=== PATIENT | female | born 1985 | race Caucasian/White ===

== ENCOUNTER 2016-05-02 20:43 | Emergency (ER) | payer BC ==
[2016-05-02] MEDS ORDERED: Ondansetron 4 MG/2 ML SDV IVPUSH ONE (21:10)
[2016-05-02] MEDS ORDERED: LORazepam 2 MG/ML MDV IVPUSH STA (21:10)
--- NOTE | 2016-05-02 21:31 | EDM.PDOC ---
ED HPI GENERAL MEDICAL PROBLEM - General Chief Complaint: Neurological Problem Stated Complaint: VOMITING NUMBNESS TO BOTH LEGS Time Seen by Provider: 05/02/16 20:54 Source of Information: Reports: Patient, RN notes reviewed History Limitations: Reports: No limitations - History of Present Illness INITIAL COMMENTS - FREE TEXT/NARRATIVE: The patient states that she developed sudden onset of blurry vision, lightheadedness, a headache involving all of her head, nausea and vomiting, the sensation of a tight throat, tingling in her lower extremities, and the feeling of walking on her legs, around 19:00 to 19:30 tonight. She denies having any chest pain, dyspnea, or abdominal pain. Her blurry vision is now slight, and her lower extremity symptoms have improved, but her nausea, headache, and throat tightness continue. She describes her headache as sharp and stabbing in character. She states that she has a history of migraines, and this is not the same as her typical migraine. It is noted that the patient is saturating 99-100% on room air. Headache Pain Score (Numeric/FACES): 8 - Related Data Allergies Allergy/AdvReac Type Severity Reaction Status Date / Time cefazolin sodium [From [facility]] Allergy Cannot Verified 05/02/16 20:51 Remember Penicillins Allergy Anaphylactic Verified 05/02/16 20:[address] Contrast Allergy Rash Uncoded 08/02/14 19:48 Home Meds: Home Meds . [No Known Home Meds] 05/02/16 [History] Past Medical History Neurological History: Reports: Migraines Other Oncologic History: melanoma - Past Surgical History HEENT Surgical History: Reports: Adenoidectomy, Oral surgery ([place] teeth extraction), Tonsillectomy GI Surgical History: Reports: Cholecystectomy, Colonoscopy (x 2) Female Surgical History: Reports: Hysterectomy Musculoskeletal Surgical History: Reports: Other (see below) (Right hand surgery ) Social & Family History - Tobacco Use Smoking Status *Q: Never Smoker Second Hand Smoke Exposure: No - Caffeine Use Caffeine Use: Reports: None - Alcohol Use Alcohol Use History: No - Recreational Drug Use Recreational Drug Use: No - Living Situation & Occupation Living situation: Reports: , with spouse, with family (1 child) 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) ED ROS GENERAL - Review of Systems Review Of Systems: See Below Constitutional: Reports: no symptoms HEENT: Reports: No symptoms Respiratory: Reports: No Symptoms Cardiovascular: Reports: No symptoms Endocrine: Reports: no symptoms GI/Abdominal: Reports: No symptoms : Reports: no symptoms Musculoskeletal: Reports: no symptoms Skin: Reports: no symptoms Neurological: Reports: No Symptoms Psychiatric: Reports: No symptoms Hematologic/Lymphatic: Reports: no symptoms Immunologic: Reports: no symptoms ED EXAM, GENERAL - Physical Exam Exam: See Below Exam Limited By: No limitations General Appearance: alert, WD/WN, no apparent distress, anxious Eye Exam: bilateral eye: EOMI, normal inspection Ears: normal external exam, hearing grossly normal Ear Exam: bilateral ear: auricle normal Nose: normal inspection, no blood Throat/Mouth: Normal inspection, Normal lips, Normal voice, No airway compromise Head: atraumatic, normocephalic Neck: normal inspection, full range of motion. No: lymphadenopathy (L), lymphadenopathy (R) Respiratory/Chest: no respiratory distress, lungs clear, normal breath sounds, no accessory muscle use, chest non-tender Cardiovascular: normal peripheral pulses, regular rate, rhythm, no edema, no gallop, no JVD, no murmur, no rub Peripheral Pulses: 4+: radial (L), radial (R) GI/Abdominal: normal bowel sounds, soft, non tender, no organomegaly, no distention, no abnormal bruit, no mass Back Exam: normal inspection, full range of motion, NT Extremities: normal inspection, normal range of motion, non-tender, normal capillary refill, no pedal edema Neurological: alert, oriented, CN II-XII intact, normal cognition, no motor/ sensory deficits Psychiatric: normal affect, anxious Skin Exam: Warm, Dry, Intact, Normal color, No rash Lymphatic: no adenopathy EKG INTERPRETATION EKG Date: 05/02/16 Time: 21:22 Rhythm: NSR Rate (beats/min): 79 [place]: normal P-wave: present QRS: normal ST-T: normal QT: normal Comparison: NA - no prior EKG Course - Vital Signs Last Recorded V/S: Last Vital Signs Temp 36.6 C 05/02/16 20:48 Pulse 80 05/03/16 03:05 Resp 16 05/03/16 03:05 BP Pulse Ox 100 05/03/16 03:05 Orthostatic Blood Pressure [ 145/112 Standing] Orthostatic Blood Pressure [ 140/99 Supine] - Orders/Labs/Meds Labs: Laboratory Tests 05/02/16 05/02/16 05/02/16 Range/Units 21:18 21:18 21:18 WBC 10.02 (3.98-10.04) K/mm3 RBC 5.01 (3.98-5.22) M/mm3 Hgb 14.5 (11.2-15.7) gm/L Hct 42.0 (34.1-44.9) % MCV 83.8 (79.4-94.8) fl MCH 28.9 (25.6-32.2) pg MCHC 34.5 (32.2-35.5) g/dl RDW Std Deviation 39.7 (36.4-46.3) fL Plt Count 354 (182-369) K/mm3 MPV 9.8 (9.4-12.3) fl Neutrophils % (Manual) 77 H (40-60) % Band Neutrophils % 1 (0-10) % Lymphocytes % (Manual) 20 (20-40) % Atypical Lymphs % 0 % Monocytes % (Manual) 2 (2-10) % Eosinophils % (Manual) 0 L (0.7-5.8) % Basophils % (Manual) 0 L (0.1-1.2) Platelet Estimate Adequate RBC Morph Comment Normal PT 10.7 (8.0-13.0) SECONDS INR 0.98 APTT 28 (22-36) SECONDS D-Dimer, Quantitative < 0.19 L (0.19-0.59) mg/L Puncture Site ABG pH (7.35-7.45) ABG pCO2 (35.0-45.0) mmHg ABG pO2 (80.0-100.0) mmHg ABG HCO3 (22.0-26.0) meq/L ABG O2 Saturation (96.0-97.0) % ABG Base Excess (-2-2.0) Haile Test A-a Gradient mmHg FiO2 (21.00-100.00) % Sodium 141 (136-145) mEq/L Potassium 3.5 (3.5-5.1) mEq/L Chloride 106 (98-107) mEq/L Carbon Dioxide 25 (21-32) mEq/L Anion Gap 13.5 (5-15) BUN 11 (7-18) mg/dL Creatinine 0.9 (0.55-1.02) mg/dL Est Cr Clr Drug Dosing 91.36 mL/min Estimated GFR (MDRD) > 60 (>60) mL/min BUN/Creatinine Ratio 12.2 L (14-18) Glucose 119 H (74-106) mg/dL Calcium 9.1 (8.5-10.1) mg/dL Magnesium 2.1 (1.8-2.4) mg/dl Total Bilirubin 0.5 (0.2-1.0) mg/dL AST 22 (15-37) U/L ALT 38 (14-59) U/L Alkaline Phosphatase 105 (46-116) U/L Troponin I < 0.017 (0.00-0.056) ng/mL B-Natriuretic Peptide (0-100) pg/mL Total Protein 7.0 (6.4-8.2) g/dl Albumin 4.3 (3.4-5.0) g/dl Globulin 2.7 gm/dL Albumin/Globulin Ratio 1.6 (1-2) TSH 3rd Generation 1.783 (0.358-3.74) uIU/mL Urine Color (Yellow) Urine Appearance (Clear) Urine pH (5.0-8.0) Ur Specific [place] (1.005-1.030) Urine Protein (Negative) Urine Glucose (UA) (Negative) Urine Ketones (Negative) Urine Occult Blood (Negative) Urine Nitrite (Negative) Urine Bilirubin (Negative) Urine Urobilinogen (0.2-1.0) Ur Leukocyte Esterase (Negative) Urine RBC (0-5) /hpf Urine WBC (0-5) /hpf Ur Squamous Epith Cells (0-5) /hpf Urine Bacteria (FEW) /hpf Urine Mucus (FEW) /hpf Urine HCG, Qual (NEGATIVE) 05/02/16 05/02/16 05/02/16 Range/Units 21:18 21:30 21:42 WBC (3.98-10.04) K/mm3 RBC (3.98-5.22) M/mm3 Hgb (11.2-15.7) gm/L Hct (34.1-44.9) % MCV (79.4-94.8) fl MCH (25.6-32.2) pg MCHC (32.2-35.5) g/dl RDW Std Deviation (36.4-46.3) fL Plt Count (182-369) K/mm3 MPV (9.4-12.3) fl Neutrophils % (Manual) (40-60) % Band Neutrophils % (0-10) % Lymphocytes % (Manual) (20-40) % Atypical Lymphs % % Monocytes % (Manual) (2-10) % Eosinophils % (Manual) (0.7-5.8) % Basophils % (Manual) (0.1-1.2) Platelet Estimate RBC Morph Comment PT (8.0-13.0) SECONDS INR APTT (22-36) SECONDS D-Dimer, Quantitative (0.19-0.59) mg/L Puncture Site Rt radial ABG pH 7.45 (7.35-7.45) ABG pCO2 31.2 L (35.0-45.0) mmHg ABG pO2 103.0 H (80.0-100.0) mmHg ABG HCO3 21.4 L (22.0-26.0) meq/L ABG O2 Saturation 98.8 H (96.0-97.0) % ABG Base Excess -1.2 (-2-2.0) Haile Test Positive A-a Gradient 0 mmHg FiO2 21.00 (21.00-100.00) % Sodium (136-145) mEq/L Potassium (3.5-5.1) mEq/L Chloride (98-107) mEq/L Carbon Dioxide (21-32) mEq/L Anion Gap (5-15) BUN (7-18) mg/dL Creatinine (0.55-1.02) mg/dL Est Cr Clr Drug Dosing mL/min Estimated GFR (MDRD) (>60) mL/min BUN/Creatinine Ratio (14-18) Glucose (74-106) mg/dL Calcium (8.5-10.1) mg/dL Magnesium (1.8-2.4) mg/dl Total Bilirubin (0.2-1.0) mg/dL AST (15-37) U/L ALT (14-59) U/L Alkaline Phosphatase (46-116) U/L Troponin I (0.00-0.056) ng/mL B-Natriuretic Peptide 18 (0-100) pg/mL Total Protein (6.4-8.2) g/dl Albumin (3.4-5.0) g/dl Globulin gm/dL Albumin/Globulin Ratio (1-2) TSH 3rd Generation (0.358-3.74) uIU/mL Urine Color (Yellow) Urine Appearance (Clear) Urine pH (5.0-8.0) Ur Specific [place] (1.005-1.030) Urine Protein (Negative) Urine Glucose (UA) (Negative) Urine Ketones (Negative) Urine Occult Blood (Negative) Urine Nitrite (Negative) Urine Bilirubin (Negative) Urine Urobilinogen (0.2-1.0) Ur Leukocyte Esterase (Negative) Urine RBC (0-5) /hpf Urine WBC (0-5) /hpf Ur Squamous Epith Cells (0-5) /hpf Urine Bacteria (FEW) /hpf Urine Mucus (FEW) /hpf Urine HCG, Qual Negative (NEGATIVE) 05/02/16 Range/Units 21:42 WBC (3.98-10.04) K/mm3 RBC (3.98-5.22) M/mm3 Hgb (11.2-15.7) gm/L Hct (34.1-44.9) % MCV (79.4-94.8) fl MCH (25.6-32.2) pg MCHC (32.2-35.5) g/dl RDW Std Deviation (36.4-46.3) fL Plt Count (182-369) K/mm3 MPV (9.4-12.3) fl Neutrophils % (Manual) (40-60) % Band Neutrophils % (0-10) % Lymphocytes % (Manual) (20-40) % Atypical Lymphs % % Monocytes % (Manual) (2-10) % Eosinophils % (Manual) (0.7-5.8) % Basophils % (Manual) (0.1-1.2) Platelet Estimate RBC Morph Comment PT (8.0-13.0) SECONDS INR APTT (22-36) SECONDS D-Dimer, Quantitative (0.19-0.59) mg/L Puncture Site ABG pH (7.35-7.45) ABG pCO2 (35.0-45.0) mmHg ABG pO2 (80.0-100.0) mmHg ABG HCO3 (22.0-26.0) meq/L ABG O2 Saturation (96.0-97.0) % ABG Base Excess (-2-2.0) Haile Test A-a Gradient mmHg FiO2 (21.00-100.00) % Sodium (136-145) mEq/L Potassium (3.5-5.1) mEq/L Chloride (98-107) mEq/L Carbon Dioxide (21-32) mEq/L Anion Gap (5-15) BUN (7-18) mg/dL Creatinine (0.55-1.02) mg/dL Est Cr Clr Drug Dosing mL/min Estimated GFR (MDRD) (>60) mL/min BUN/Creatinine Ratio (14-18) Glucose (74-106) mg/dL Calcium (8.5-10.1) mg/dL Magnesium (1.8-2.4) mg/dl Total Bilirubin (0.2-1.0) mg/dL AST (15-37) U/L ALT (14-59) U/L Alkaline Phosphatase (46-116) U/L Troponin I (0.00-0.056) ng/mL B-Natriuretic Peptide (0-100) pg/mL Total Protein (6.4-8.2) g/dl Albumin (3.4-5.0) g/dl Globulin gm/dL Albumin/Globulin Ratio (1-2) TSH 3rd Generation (0.358-3.74) uIU/mL Urine Color Yellow (Yellow) Urine Appearance Slt cloudy H (Clear) Urine pH 7.5 (5.0-8.0) Ur Specific [place] 1.020 (1.005-1.030) Urine Protein Negative (Negative) Urine Glucose (UA) Negative (Negative) Urine Ketones Negative (Negative) Urine Occult Blood Negative (Negative) Urine Nitrite Negative (Negative) Urine Bilirubin Negative (Negative) Urine Urobilinogen 0.2 (0.2-1.0) Ur Leukocyte Esterase Negative (Negative) Urine RBC 0-5 (0-5) /hpf Urine WBC 0-5 (0-5) /hpf Ur Squamous Epith Cells 0-5 (0-5) /hpf Urine Bacteria Few (FEW) /hpf Urine Mucus Not seen (FEW) /hpf Urine HCG, Qual (NEGATIVE) Meds: Medications Discontinued Medications Generic Name Dose Route Start Last Admin Trade Name Freq PRN Reason Stop Dose Admin Lorazepam 1 mg 05/02/16 21:10 05/02/16 21:51 Ativan IVPUSH 05/02/16 21:11 1 mg ONETIME STA Administration Ondansetron HCl 4 mg 05/02/16 21:10 05/02/16 21:31 Zofran IVPUSH 05/02/16 21:11 4 mg ONETIME ONE Administration - Radiology Interpretation Free Text/Narrative:: Two-view chest radiograph appears to be grossly normal. Cardiac silhouette is within normal limits. No pulmonary vascular congestion. No pleural effusions. No focal infiltrate. No pneumothorax. Small opacity noted at the right lateral base, possibly related to nipple shadow. Mild scoliosis noted. Formal read per the Radiologist pending. - Re-Assessments/Exams Free Text/Narrative Re-Assessment/Exam: 05/02/16 22:15 Test results discussed with the patient. The ABG indicates that the patient has compensated respiratory alkalosis. The remainder of her workup is unremarkable. By a process of elimination, the patient's hyperventilation is most likely due to anxiety, as we have ruled out infection, acute coronary syndrome, significant electrolyte abnormality, , pneumothorax, pneumonia, CHF, orthostasis, dysrhythmia, pulmonary embolus, and hypothyroidism. I am recommending to the patient that if her symptoms recur, that she talk to Dr. Mckeon about treatment options. She is feeling better after Ativan and Zofran. Departure - Departure Time of Disposition: 22:17 Disposition: Home, Self-Care 01 Condition: good Clinical Impression: Hyperventilation syndrome Instructions: Hyperventilation Referrals: Reno Delgado MD [Primary Care Provider] - Forms: ED Department Discharge Additional Instructions: You were seen in the emergency room tonight for blurry vision, numbness in your legs, lightheadedness, nausea and vomiting, and a headache, a tightness in her throat, and the feeling of walking on a rubber legs. Workup in the ER included blood work, an ABG, a urinalysis, a urine test, an ECG, a chest x-ray, and positional blood pressure checks. The workup shows us that you were hyperventilating, which was the cause of your symptoms. Medical causes of hyperventilation, such as infection, heart damage, significant electrolyte abnormality, , a collapsed lung, pneumonia, CHF , orthostasis, dysrhythmia, a blood clot in your lung, and hypothyroidism have been ruled out. It is therefore MOST LIKELY that your hyperventilation was due to anxiety. Hyperventilation is not harmful, but is unpleasant to experience. If this never happens again, nothing needs to be done. However, if this becomes recurrent, please talk to your PCP, Dr. Mckeon, about treatment options. If any other problems, please do not hesitate to return to the ER.
--- NOTE | 2016-05-04 08:01 | CR ---
Chest: Two views of the chest were obtained. Comparison: No previous chest x-ray. Findings: Nodularity is seen within the right lower chest compatible with granulomatous change. Large granuloma noted on prior CT abdomen and pelvis exam partially showing the right lung base. Lungs otherwise are clear. Heart size and mediastinum are normal. Mild scoliosis noted within the spine. Surgical clips seen from prior cholecystectomy. Impression: 1. Granulomatous change within the right lung base. This appears to be chronic. 2. Other incidental findings. Nothing acute is appreciated. Diagnostic code #2
== END 2016-05-02 22:40 | disposition home or self-care (01) ==
LOC: JD.ED 20:43
DX: F45.8 Other somatoform disorders (principal); Z98.890 Other specified postprocedural states; Z90.49 Acquired absence of other specified parts of digestive tract; Z90.710 Acquired absence of both cervix and uterus; Z88.0 Allergy status to penicillin; Z88.8 Allergy status to other drugs, medicaments and biological substances
CPT/HCPCS: 36415; 36600; 71020; 80053; 81001; 81025; 82803; 83735; 83880; 84443; 84484; 85025; 85379; 85610; 85730; 93005; 96374; 96375; 99284; J2060; J2405

== ENCOUNTER 2017-03-30 06:03 | Emergency (ER) | payer BC ==
[2017-03-30 06:11] VITALS: BP 150/113
[2017-03-30] MEDS ORDERED: HYDROmorphone 1 MG/ML Syringe IVPUSH ONE (06:23)
[2017-03-30] MEDS ORDERED: Metoclopramide 10 MG/2 ML SDV IVPUSH ONE (06:23)
--- NOTE | 2017-03-30 06:28 | EDM.PDOC ---
ED HPI GENERAL MEDICAL PROBLEM - General Chief Complaint: Abdominal Pain Stated Complaint: ABDOMINAL PAIN RIGHT LOWER FRONT Time Seen by Provider: 03/30/17 06:23 Source of Information: Reports: Patient History Limitations: Reports: No Limitations - History of Present Illness INITIAL COMMENTS - FREE TEXT/NARRATIVE: 31-year-old female presents to the ED with diffuse right lower quadrant abdominal pain. She states last evening she had right low back and pain and thought perhaps she had strained something. Overnight the pain transition to the right lower quadrant abdomen towards the right groin. Pain is constant but does have a mild colicky component. She has a history of renal stones in the past. Not for many years however. She's not no cine blood in her urine. Had a normal bowel movement about 20-30 hours last night without any blood or relief of abdominal pain. Pain was bad enough to make her nauseated but she has not vomited. Pain is been quite significant since 0400 hrs. and would not allow her any comfortable position. Patient has had previous total abdominal hysterectomy due to endometriosis. Both ovaries were retained over she mentions that the left ovary is felt to not be functioning. It hurts slightly to walk from the house to the truck. Also noted that every bump in the road was a bit painful in the right lower quadrant. She has taken some Tylenol for the pain without much relief. Onset: Gradual Onset Date: 03/29/17 (Diffuse right low back pain transition to right lower quadrant abdominal pain overnight.) Duration: Hour(s): Location: Reports: Abdomen (Right lower back pain initially but it is now gone. Right lower quadrant of the abdomen from midabdomen down to the groin.), Back Quality: Reports: Ache, Other (Slight colicky component to the pain) Severity: Moderate Improves with: Reports: Other (Heating pad seemed to help some.) Worsens with: Reports: Movement Context: Denies: Activity (Walking seemed to make it a little bit worse.), Exercise, Lifting, Sick Contact, Trauma, Other Associated Symptoms: Reports: Nausea/Vomiting, Other (No feeling of need to void or necessarily defecate.). Denies: Rash, Seizure (Nausea with no vomiting) , Shortness of Breath, Syncope Treatments MEMBERSHIP SOLICITOR: Reports: Acetaminophen Right Lower Abdomen Pain Score (Numeric/FACES): 10 - Related Data Allergies Allergy/AdvReac Type Severity Reaction Status Date / Time cefazolin sodium [From Anc] Allergy Cannot Verified 03/30/17 06:12 Remember Penicillins Allergy Anaphylactic Verified 03/30/17 06:[address] Contrast Allergy Rash Uncoded 03/30/17 06:12 Home Meds: Home Meds Cyclobenzaprine HCl [Cyclobenzaprine HCl] 30 mg PO BEDTIME 03/30/17 [History] Past Medical History Genitourinary History: Reports: Renal Calculus Other OB/BYN History: x1 Other Musculoskeletal History: right wrist fx; right wrist surgery 12-17-2015 Neurological History: Reports: Migraines, Other (See Below) Other Neuro History: occipital neuralgia Other Oncologic History: melanoma Dermatologic History: Reports: Other (See Below) Other Dermatologic History: acne - Past Surgical History HEENT Surgical History: Reports: Adenoidectomy, Oral Surgery, Tonsillectomy GI Surgical History: Reports: Cholecystectomy, Colonoscopy Female Surgical History: Reports: Hysterectomy Musculoskeletal Surgical History: Reports: Other (See Below) Social & Family History - Family History Family Medical History: Noncontributory - Tobacco Use Smoking Status *Q: Never Smoker Second Hand Smoke Exposure: No - Caffeine Use Caffeine Use: Reports: None - Recreational Drug Use Recreational Drug Use: No - Living Situation & Occupation Living situation: Reports: , with Spouse, with Family Occupation: Employed ED ROS GENERAL - Review of Systems Review Of Systems: See Below Constitutional: Reports: Fatigue. Denies: Fever, Chills, Malaise, Weakness HEENT: Reports: No Symptoms (Due to not getting much sleep.) Respiratory: Reports: No Symptoms Cardiovascular: Reports: No Symptoms Endocrine: Reports: No Symptoms GI/Abdominal: Reports: Abdominal Pain (Right lower quadrant rating down towards the right groin.), Decreased Appetite, Nausea. Denies: Constipation, Vomiting : Reports: Flank Pain (Low back pain but no true flank pain yesterday). Denies: Frequency ( evening.), Hematuria, Incontinence, Irregular Menses, Pain, Urgency, Urinary Retention Musculoskeletal: Reports: Back Pain (Right lower back pain which is transition to the right lower abdomen overnight. Back pain is now gone.) Skin: Reports: No Symptoms Neurological: Reports: No Symptoms Psychiatric: Reports: No Symptoms ED EXAM, GI/ABD - Physical Exam Exam: See Below Exam Limited By: No Limitations General Appearance: Alert, WD/WN, No Apparent Distress Eyes: Bilateral: Normal Appearance (No jaundice.) Neck: Normal Inspection, Supple, Non-Tender, Full Range of Motion. No: Lymphadenopathy (L), Lymphadenopathy (R) Respiratory/Chest: No Respiratory Distress, Lungs Clear, Normal Breath Sounds, Chest Non-Tender Cardiovascular: Normal Peripheral Pulses, Regular Rate, Rhythm, No Edema, No Gallop, No Murmur GI/Abdominal Exam: Soft, Non-Tender, No Organomegaly, No Abnormal Bruit, No Mass , Pelvis Stable, Tender, Abnormal Bowel Sounds (Abdomen is very quiet with only occasional bowel sound evident.), Other (No peritoneal signs identified. Negative Rovsing sign and negative obturator sign). No: Guarding (Very slight tenderness in the right lower quadrant.), Rigid, Rebound Back Exam: Normal Inspection, Full Range of Motion. No: CVA Tenderness (L), CVA Tenderness (R) Extremities: Normal Inspection, Normal Range of Motion, Non-Tender, No Pedal Edema Neurological: Alert, Oriented, CN II-XII Intact, Normal Cognition, Normal Gait Psychiatric: Normal Affect, Normal Mood Skin Exam: Warm, Dry, Intact, Normal Color, No Rash Course - Vital Signs Last Recorded V/S: Last Vital Signs Temp 36.6 C 03/30/17 06:07 Pulse 93 03/30/17 06:07 Resp 16 03/30/17 06:07 BP 150/113 H 03/30/17 06:07 Pulse Ox 100 03/30/17 06:07 - Orders/Labs/Meds Orders: Active Orders 24 hr Category Date Time Status URINALYSIS W/MICROSCOPIC [UA W/MICROSCOPIC] [URIN] Stat Lab 03/30/17 06:24 Uncollected Ketorolac [Toradol] Med 03/30/17 07:30 Ordered 30 mg IVPUSH ONETIME Magnesium Citrate [Citrate of Magnesia] Med 03/30/17 07:28 Once 240 ml PO ONETIME ONE Sodium Chloride 0.9% [Normal Saline] 1,000 ml Med 03/30/17 06:30 Active IV ASDIRECTED Medication Orders Sodium Chloride (Normal Saline) 1,000 mls @ 150 mls/hr IV ASDIRECTED CHELE Last Admin: 03/30/17 06:32 Dose: 150 mls/hr Ketorolac Tromethamine (Toradol) 30 mg IVPUSH ONETIME CHELE Labs: Laboratory Tests 03/30/17 03/30/17 Range/Units 06:25 06:25 WBC 6.85 (3.98-10.04) K/mm3 RBC 5.31 H (3.98-5.22) M/mm3 Hgb 15.0 (11.2-15.7) gm/L Hct 44.7 (34.1-44.9) % MCV 84.2 (79.4-94.8) fl MCH 28.2 (25.6-32.2) pg MCHC 33.6 (32.2-35.5) g/dl RDW Std Deviation 41.8 (36.4-46.3) fL Plt Count 366 (182-369) K/mm3 MPV 9.4 (9.4-12.3) fl Neutrophils % (Manual) 69 H (40-60) % Band Neutrophils % 0 (0-10) % Lymphocytes % (Manual) 22 (20-40) % Atypical Lymphs % 0 % Monocytes % (Manual) 4 (2-10) % Eosinophils % (Manual) 4 (0.7-5.8) % Basophils % (Manual) 1 (0.1-1.2) Platelet Estimate Adequate RBC Morph Comment Normal Sodium 139 (136-145) mEq/L Potassium 3.6 (3.5-5.1) mEq/L Chloride 104 (98-107) mEq/L Carbon Dioxide 26 (21-32) mEq/L Anion Gap 12.6 (5-15) BUN 8 (7-18) mg/dL Creatinine 0.8 (0.55-1.02) mg/dL Est Cr Clr Drug Dosing 101.84 mL/min Estimated GFR (MDRD) > 60 (>60) mL/min BUN/Creatinine Ratio 10.0 L (14-18) Glucose 108 H (74-106) mg/dL Calcium 8.7 (8.5-10.1) mg/dL Total Bilirubin 0.5 (0.2-1.0) mg/dL AST 22 (15-37) U/L ALT 29 (14-59) U/L Alkaline Phosphatase 89 (46-116) U/L C-Reactive Protein < 0.2 (<1.0) mg/dL Total Protein 7.0 (6.4-8.2) g/dl Albumin 3.9 (3.4-5.0) g/dl Globulin 3.1 gm/dL Albumin/Globulin Ratio 1.3 (1-2) Meds: Medications Generic Name Dose Route Start Last Admin Trade Name Marcy PRN Reason Stop Dose Admin Sodium Chloride 1,000 mls @ 150 mls/hr 03/30/17 06:30 03/30/17 06:32 Normal Saline IV 150 mls/hr ASDIRECTED CHELE Administration Ketorolac Tromethamine 30 mg 03/30/17 07:30 Toradol IVPUSH ONETIME CHELE Discontinued Medications Generic Name Dose Route Start Last Admin Trade Name Freq PRN Reason Stop Dose Admin Hydromorphone HCl 0.5 mg 03/30/17 06:23 03/30/17 06:39 Dilaudid IVPUSH 03/30/17 06:24 0.5 mg ONETIME ONE Administration Metoclopramide HCl 7.5 mg 03/30/17 06:23 03/30/17 06:32 Reglan IVPUSH 03/30/17 06:24 7.5 mg ONETIME ONE Administration - Radiology Interpretation Free Text/Narrative:: 31-year-old female presents the ED with diffuse right lower quadrant abdominal pain. She appreciated diffuse right low back pain last evening that overnight transition to the right lower quadrant of the abdomen. Back pain is no longer present. She states it is constant with a slight colicky component. Associated nausea without any vomiting. Normal bowel movement last evening. History of kidney stones in the past but not for many years. She has had a total abdominal hysterectomy and cholecystectomy. Both ovaries were retained although she mentions the left ovary is felt to not function anymore. Surgery was carried out for endometriosis. Examination reveals some tenderness in the right lower quadrant without any guarding or peritoneal signs. Plan urinalysis to be done. Will have CT of the abdomen and pelvis carried out per renal protocol as her history is most suspicious for a small stone at the UVJ. Clinically there is no peritoneal signs to suggest appendicitis. Plan CBC CMP and a CRP will be done as well. Current she currently she rates the pain as 6 or 7 out of 10. Will give her Dilaudid 0.5 mg IV with Reglan 7.5 mg IV for pain relief. - Re-Assessments/Exams Free Text/Narrative Re-Assessment/Exam: 03/30/17 07:29 CT of the abdomen reveals several small stones in the parenchyma of each kidney I can see 3 on the left and 2 on the right. No stones are identified within the ureters and there is no hydroureter or hydronephrosis. Adrenal glands appear normal. Previous cholecystectomy noted. Previous hysterectomy appreciated. Appendix is visualized and is no sign of periappendiceal inflammation. Large amount of stools appreciated throughout the right hemicolon particularly the cecum down in her pelvis. Stool appreciated throughout the right hemicolon and most of the transverse colon as well. Therefore pain appears to be secondary to constipation. Pain is now coming back and we will give her a dose of Toradol 30 mg IV for further pain relief. She will be discharged to home to take 8 ounces of Citroma when she gets home with 4 -5 ounces of juice of choice. This was take 1-2 hours to work and produce 3-4 bowel movements. She will return if not markedly improved after bowel cleanse. Departure - Departure Time of Disposition: 07:30 Disposition: Home, Self-Care 01 Condition: Fair Clinical Impression: Constipation by delayed colonic transit Abdominal pain Qualifiers: Abdominal location: right lower quadrant Qualified Code(s): R10.31 - Right lower quadrant pain - Discharge Information Referrals: Reno Delgado MD [Primary Care Provider] - Forms: ED Department Discharge Additional Instructions: Evaluation the emergency room this morning in regards to development of right lower quadrant abdominal pain that developed overnight. Initially right lower back pain was appreciated before going to bed last night. History was compatible with possibility of a small kidney stone traversing into the lower right ureter. By history you've had renal colic in the past. You're therefore treated with medications for pain Dilaudid 0.5 mg IV and Reglan 7.5 mg IV for nausea. CT scan of the abdomen reveals no signs of appendicitis. Also it did identify several small stones in the kidney tissues itself but no stones obstructing the ureter or down in the pelvis. It did reveal a large amount of stool throughout the right hemicolon particularly the cecum down in the pelvis and correlates with your current pain. Treatment is therefore magnesium citrate or Citroma 8 ounces by mouth with 4-5 ounces of juice of choice this morning when you get home. This will usually take 1-2 hours to start to work and will usually produce 3 or 4 bowel movements over the next 45 hours. This should relieve your abdominal pain completely. He would need to return to the ED if abdominal pain not completely relieved with bowel cleanse or pain worsens over the next 12 hours. - My Orders Last 24 Hours: My Active Orders 03/30/17 06:24 URINALYSIS W/MICROSCOPIC [UA W/MICROSCOPIC] [URIN] Stat 03/30/17 06:30 Sodium Chloride 0.9% [Normal Saline] 1,000 ml IV ASDIRECTED 03/30/17 07:28 Magnesium Citrate [Citrate of Magnesia] 240 ml PO ONETIME ONE 03/30/17 07:30 Ketorolac [Toradol] 30 mg IVPUSH ONETIME - Assessment/Plan Last 24 Hours: My Active Orders 03/30/17 06:24 URINALYSIS W/MICROSCOPIC [UA W/MICROSCOPIC] [URIN] Stat 03/30/17 06:30 Sodium Chloride 0.9% [Normal Saline] 1,000 ml IV ASDIRECTED 03/30/17 07:28 Magnesium Citrate [Citrate of Magnesia] 240 ml PO ONETIME ONE 03/30/17 07:30 Ketorolac [Toradol] 30 mg IVPUSH ONETIME
[2017-03-30] MEDS ORDERED: Sodium Chloride 0.9% 1,000 ML IV SCH (06:30)
--- NOTE | 2017-03-30 07:09 | CT ---
CT abdomen and pelvis Technique: Multiple axial sections were obtained from above the dome of the diaphragm inferiorly through the pubic symphysis. Intravenous and oral contrast not utilized. Study has been performed as a ureteral stone protocol. Comparison: Previous renal stone protocol dated 08/02/14. Findings: Multiple small nonobstructing calculi noted within both kidneys. These are seen on prior exam. No ureteral dilatation is seen. No ureteral calculus is seen. Calcified granuloma noted within the right lung base. Liver shows no focal parenchymal abnormality. Previous cholecystectomy is noted. Spleen size is normal. Soft tissue nodule is seen medial to the spleen compatible with accessory splenic tissue. Adrenal glands show no nodule. Pancreas is within normal limits. Aorta shows no aneurysmal dilatation. No retroperitoneal adenopathy or mesenteric abnormalities are seen. No pelvic mass or adenopathy is seen. Increased stool is identified throughout the colon particularly the transverse and right colon. Appendix is felt to be seen and appears normal. No free fluid or inflammatory change is seen. Bone window settings were reviewed which appears within normal limits for the patient's age. Impression: 1. Small nonobstructing calculi within both kidneys. These findings are seen on prior CT exam. 2. No ureteral dilatation or ureteral stone is seen. 3. Mild increased stool within the colon. No additional abnormality is appreciated. Diagnostic code #2
[2017-03-30] MEDS ORDERED: Magnesium Citrate Solution 296 ML Bottle PO ONE (07:28)
[2017-03-30] MEDS ORDERED: Ketorolac 30 MG/ML SDV IVPUSH SCH (07:30)
== END 2017-03-30 07:45 | disposition home or self-care (01) ==
LOC: JD.ED 06:03
DX: K59.01 Slow transit constipation (principal); Z88.0 Allergy status to penicillin; Z88.1 Allergy status to other antibiotic agents; Z91.041 Radiographic dye allergy status
CPT/HCPCS: 36415; 74176; 74176-26; 80053; 85025; 86140; 96374; 96375; 99284; 99284-25; A9270-GY; J1170; J1885; J2765; J7040

== ENCOUNTER 2019-09-27 16:12 | Emergency (ER) | payer BC, OTHER ==
[2019-09-27 16:44] VITALS: BP 165/112; PULSE 81
--- NOTE | 2019-09-27 18:29 | EDM.PDOC ---
ED HPI GENERAL MEDICAL PROBLEM - General Chief Complaint: Lower Extremity Injury/Pain Stated Complaint: WASP STING 2 DAYS AGO STILL SWOLLEN Time Seen by Provider: 09/27/19 18:09 Source of Information: Reports: Patient, RN Notes Reviewed - History of Present Illness INITIAL COMMENTS - FREE TEXT/NARRATIVE: Was stung by a wasp L ankle 2 days ago. She has been elevating foot and ankle when she can but swelling not going down, more inflamed looking today. No fever, chills or other unsual sx. - Related Data Allergies Allergy/AdvReac Type Severity Reaction Status Date / Time cefazolin sodium [From Anc] Allergy Cannot Verified 09/27/19 16:38 Remember Penicillins Allergy Anaphylactic Verified 09/27/19 16:[address] Contrast Allergy Rash Uncoded 09/27/19 16:38 Home Meds: Home Meds Amitriptyline [Elavil] 20 mg PO DAILY 09/27/19 [History] DULoxetine HCl [Cymbalta] 60 mg PO DAILY 09/27/19 [History] Sulfamethoxazole/Trimethoprim [Bactrim Ds Tablet] 1 each PO BID #10 tablet 09/27/19 [Rx] Past Medical History Cardiovascular History: Reports: Hypertension Genitourinary History: Reports: Renal Calculus 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 Other Musculoskeletal History: right wrist fx; right wrist surgery 12-17-2015 Neurological History: Reports: Migraines, Other (See Below) Other Neuro History: occipital neuralgia Other Oncologic History: melanoma Dermatologic History: Reports: Other (See Below) Other Dermatologic History: acne - Past Surgical History HEENT Surgical History: Reports: Adenoidectomy, Oral Surgery, Tonsillectomy GI Surgical History: Reports: Cholecystectomy, Colonoscopy Female Surgical History: Reports: Hysterectomy Musculoskeletal Surgical History: Reports: Other (See Below) Social & Family History - Family History Family Medical History: Noncontributory - Tobacco Use Smoking Status *Q: Never Smoker Second Hand Smoke Exposure: No - Caffeine Use Caffeine Use: Reports: None - Living Situation & Occupation Living situation: Reports: , with Spouse, with Family Occupation: Employed Review of Systems - Review of Systems Review Of Systems: See Below Constitutional: Denies: Chills, Fever Eyes: Reports: No Symptoms Ears: Reports: No Symptoms Nose: Reports: No Symptoms Mouth/Throat: Reports: No Symptoms Respiratory: Denies: Shortness of Breath, Wheezing Cardiovascular: Denies: Chest Pain GI/Abdominal: Denies: Vomiting Musculoskeletal: Reports: Joint Swelling (L ankle and also L foot) Skin: Reports: Erythema (L ankle) ED EXAM, GENERAL - Physical Exam Exam: See Below General Appearance: Alert, No Apparent Distress Eye Exam: Bilateral Eye: PERRL Head: Atraumatic. No: Facial Swelling Neck: Supple Respiratory/Chest: No Respiratory Distress, Lungs Clear, Normal Breath Sounds. No: Rhonchi, Wheezing Cardiovascular: Regular Rate, Rhythm Extremities: Redness (mild diffuse swelling and mild erythema ant. L ankle radiating up lower ant leg) Skin Exam: Warm, Dry. No: Rash (no other rash or hives) Course - Vital Signs Last Recorded V/S: Last Vital Signs Temp 99 F 09/27/19 16:41 Pulse 81 09/27/19 16:41 Resp 16 09/27/19 16:41 BP 165/112 H 09/27/19 16:41 Pulse Ox 97 09/27/19 16:41 Departure - Departure Time of Disposition: 18:24 Disposition: Home, Self-Care 01 Condition: Fair Clinical Impression: Wasp sting Qualifiers: Encounter type: initial encounter Injury intent: undetermined intent Qualified Code(s): T63.464A - Toxic effect of venom of wasps, undetermined, initial encounter - Discharge Information Prescriptions: Sulfamethoxazole/Trimethoprim [Bactrim Ds Tablet] 1 each PO BID #10 tablet Instructions: Bee, Wasp, or Hornet Sting, Adult Referrals: Lore Leonard EGG FACTORY WORKER [Primary Care Provider] - Forms: ED Department Discharge Additional Instructions: claritin 10 mg daily until swelling is gone, elevate foot and ankle as much as you can when you can. Bactrim DS twice daily for 5 days or until gone. Prescription has been sent electronically to [facility] Sepsis Event Note (ED) - Evaluation Sepsis Screening Result: No Definite Risk
== END 2019-09-27 18:30 | disposition home or self-care (01) ==
LOC: JD.ED 16:12
DX: T63.461A Toxic effect of venom of wasps, accidental (unintentional), initial encounter (principal); I10 Essential (primary) hypertension; Z88.0 Allergy status to penicillin; Z88.8 Allergy status to other drugs, medicaments and biological substances; Z91.041 Radiographic dye allergy status
CPT/HCPCS: 99282; 99283

== ENCOUNTER 2020-02-28 17:28 | Emergency (ER) | payer BC, OTHER ==
[2020-02-28] MEDS ORDERED: Ondansetron 4 MG/2 ML SDV IVPUSH ONE ×2 (18:03→20:05)
[2020-02-28] MEDS ORDERED: Sodium Chloride 0.9% 10 ML Syringe FLUSH PRN (18:03)
[2020-02-28] MEDS ORDERED: Sodium Chloride 0.9% 1,000 ML IV STA (18:03)
[2020-02-28] MEDS ORDERED: Ketorolac 30 MG/ML SDV IVPUSH ONE (18:06)
--- NOTE | 2020-02-28 18:42 | EDM.PDOC ---
ED HPI GENERAL MEDICAL PROBLEM - General Chief Complaint: General Stated Complaint: NO TASTE/[id number] Time Seen by Provider: 02/28/20 17:44 Source of Information: Reports: Patient, RN Notes Reviewed History Limitations: Reports: No Limitations - History of Present Illness INITIAL COMMENTS - FREE TEXT/NARRATIVE: Patient is a 34-year-old female presenting to the emergency department with complaints of nausea, vomiting, abdominal cramping, headache, fever, chills, and dizziness. Symptoms started on Wednesday which is 3 days ago. She states that evening she was having excessive vomiting and diarrhea which lasted until early the following evening. At that point her symptoms did let up, however she continues to have "waves" of nausea and is only able to eat a small amount. She has been having consistent headaches since that time as well. She states that she took one of her Imitrex injections last evening and that it did not help. She complains of generalized body aches and feels that she had a fever up until today. She feels like her symptoms have improved today, however she continues to be nauseous when eating. She has not had diarrhea since Wednesday evening. She denies any questionable foods. She does state that some coworkers she worked with on the weekend had similar symptoms, however there is resolved quite rapidly. She denies any cough,, congestion, sore throat, or shortness of breath. She denies loss of taste or smell. Headache Pain Score (Numeric/FACES): 7 - Related Data Allergies Allergy/AdvReac Type Severity Reaction Status Date / Time cefazolin sodium [From [facility]] Allergy Cannot Verified 02/28/20 17:45 Remember Penicillins Allergy Anaphylactic Verified 02/28/20 17:[address] Contrast Allergy Rash Uncoded 02/28/20 17:45 Home Meds: Home Meds Amitriptyline [Elavil] 20 mg PO DAILY 09/27/19 [History] DULoxetine HCl [Cymbalta] 60 mg PO DAILY 09/27/19 [History] Losartan/Hydrochlorothiazide [Losartan-HCTZ 50-12.5 MG] 1 tab PO DAILY 02/28/20 [History] Potassium Chloride 10 meq PO BID 3 Days #6 capsule.er 02/28/20 [Rx] SUMAtriptan [Imitrex] 1 injection IM DAILY PRN 02/28/20 [History] diazePAM [Valium] 10 mg PO BEDTIME PRN 02/28/20 [History] valACYclovir HCl [valACYclovir] 1,000 mg PO Q12H PRN 02/28/20 [History] Past Medical History Cardiovascular History: Reports: Hypertension Genitourinary History: Reports: Renal Calculus 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 AND EEG TECH History: Reports: Other 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 AND EEG TECH History: x1 Other Musculoskeletal History: right wrist fx; right wrist surgery 12-17-2015 Neurological History: Reports: Migraines, Other (See Below) Other Neuro History: occipital neuralgia Other Oncologic History: melanoma Dermatologic History: Reports: Other (See Below) Other Dermatologic History: acne - Infectious Disease History Infectious Disease History: Reports: Chicken Pox - Past Surgical History HEENT Surgical History: Reports: Adenoidectomy, Oral Surgery, Tonsillectomy Other HEENT Surgeries/Procedures: adenoids GI Surgical History: Reports: Cholecystectomy, Colonoscopy Female Surgical History: Reports: Hysterectomy Musculoskeletal Surgical History: Reports: Other (See Below) Social & Family History - Family History Family Medical History: No Pertinent Family History - Tobacco Use Tobacco Use Status *Q: Never Tobacco User Second Hand Smoke Exposure: No - Caffeine Use Caffeine Use: Reports: Energy Drinks - Recreational Drug Use Recreational Drug Use: No - Living Situation & Occupation Living situation: Reports: , with Spouse, with Family Occupation: Employed ED ROS GENERAL - Review of Systems Review Of Systems: See Below Constitutional: Reports: Fever, Chills, Weakness, Fatigue, Decreased Appetite HEENT: Reports: No Symptoms Respiratory: Reports: No Symptoms. Denies: Shortness of Breath, Cough Cardiovascular: Reports: Lightheadedness. Denies: Chest Pain Endocrine: Reports: No Symptoms GI/Abdominal: Reports: Abdominal Pain, Diarrhea, Nausea, Vomiting : Reports: No Symptoms. Denies: Dysuria Musculoskeletal: Reports: No Symptoms Skin: Reports: No Symptoms Neurological: Reports: No Symptoms Psychiatric: Reports: No Symptoms Hematologic/Lymphatic: Reports: No Symptoms Immunologic: Reports: No Symptoms ED EXAM, GENERAL - Physical Exam Exam: See Below General Appearance: Alert, WD/WN, No Apparent Distress Respiratory/Chest: No Respiratory Distress, Lungs Clear, Normal Breath Sounds, No Accessory Muscle Use, Chest Non-Tender Cardiovascular: Normal Peripheral Pulses, Regular Rate, Rhythm, No Edema, No Gallop, No JVD, No Murmur, No Rub GI/Abdominal: Normal Bowel Sounds, Soft, Non-Tender, No Organomegaly, No Distention, No Abnormal Bruit, No Mass Neurological: Alert, Oriented, CN II-XII Intact, Normal Cognition, Normal Gait, Normal Reflexes, No Motor/Sensory Deficits Psychiatric: Normal Affect, Normal Mood Skin Exam: Warm, Dry, Intact, Normal Color, No Rash Course - Vital Signs Last Recorded V/S: Last Vital Signs Temp 97.5 F 02/28/20 17:42 Pulse 84 02/28/20 17:42 Resp 17 02/28/20 17:42 BP 160/107 H 02/28/20 17:42 Pulse Ox 99 02/28/20 17:42 - Orders/Labs/Meds Orders: Active Orders 24 hr Category Date Time Status Peripheral IV Care [RC] . DIRECTED Care 02/28/20 18:03 Active NS + KCl 20mEq/L [Normal Saline with 20 mEq KCl] 1,000 Med 02/28/20 19:30 Active ml IV ASDIRECTED Sodium Chloride 0.9% [Saline Flush] Med 02/28/20 18:03 Active 10 ml FLUSH ASDIRECTED PRN Peripheral IV Insertion Adult [OM.PC] Stat Oth 02/28/20 18:02 Ordered Medication Orders Potassium Chloride/Sodium Chloride (Normal Saline With 20 Meq Kcl) 1,000 mls @ 500 mls/hr IV ASDIRECTED CHELE Last Admin: 02/28/20 19:31 Dose: 500 mls/hr Documented by: CHRIS Sodium Chloride (Saline Flush) 10 ml FLUSH ASDIRECTED PRN PRN Reason: Keep Vein Open Last Admin: 02/28/20 18:24 Dose: 10 ml Documented by: CHRIS Labs: Laboratory Tests 02/28/20 02/28/20 02/28/20 Range/Units 18:19 18:19 18:19 WBC 7.08 (3.98-10.04) K/mm3 RBC 5.21 (3.98-5.22) M/mm3 Hgb 14.6 (11.2-15.7) gm/dl Hct 43.2 (34.1-44.9) % MCV 82.9 (79.4-94.8) fl MCH 28.0 (25.6-32.2) pg MCHC 33.8 (32.2-35.5) g/dl RDW Std Deviation 40.9 (36.4-46.3) fL Plt Count 417 H (182-369) K/mm3 MPV 9.5 (9.4-12.3) fl Neut % (Auto) 58.5 (34.0-71.1) % Lymph % (Auto) 25.8 (19.3-51.7) % [place] % (Auto) 12.0 (4.7-12.5) % Eos % (Auto) 3.1 (0.7-5.8) Baso % (Auto) 0.3 (0.1-1.2) % Neut # (Auto) 4.14 (1.56-6.13) K/mm3 Lymph # (Auto) 1.83 (1.18-3.74) K/mm3 [place] # (Auto) 0.85 H (0.24-0.36) K/mm3 Eos # (Auto) 0.22 (0.04-0.36) K/mm3 Baso # (Auto) 0.02 (0.01-0.08) K/mm3 Sodium 146 H (136-145) mEq/L Potassium 3.0 L (3.5-5.1) mEq/L Chloride 105 (98-107) mEq/L Carbon Dioxide 27 (21-32) mEq/L Anion Gap 17.0 H (5-15) BUN 11 (7-18) mg/dL Creatinine 0.9 (0.55-1.02) mg/dL Est Cr Clr Drug Dosing 88.01 mL/min Estimated GFR (MDRD) > 60 (>60) mL/min BUN/Creatinine Ratio 12.2 L (14-18) Glucose 113 H (74-106) mg/dL Calcium 9.0 (8.5-10.1) mg/dL Magnesium (1.8-2.4) mg/dl Total Bilirubin 0.3 (0.2-1.0) mg/dL AST 18 (15-37) U/L ALT 25 (14-59) U/L Alkaline Phosphatase 98 (46-116) U/L C-Reactive Protein 2.6 H* (<1.0) mg/dL Total Protein 7.0 (6.4-8.2) g/dl Albumin 3.6 (3.4-5.0) g/dl Globulin 3.4 gm/dL Albumin/Globulin Ratio 1.1 (1-2) Lipase 80 (73-393) U/L Urine Color (Yellow) Urine Appearance (Clear) Urine pH (5.0-8.0) Ur Specific [place] (1.005-1.030) Urine Protein (Negative) Urine Glucose (UA) (Negative) Urine Ketones (Negative) Urine Occult Blood (Negative) Urine Nitrite (Negative) Urine Bilirubin (Negative) Urine Urobilinogen (0.2-1.0) Ur Leukocyte Esterase (Negative) Urine RBC (0-5) /hpf Urine WBC (0-5) /hpf Ur Squamous Epith Cells (0-5) /hpf Urine Bacteria (FEW) /hpf Urine Mucus (FEW) /hpf SARS-CoV-2 RNA (NICK) Negative (NEGATIVE) 02/28/20 02/28/20 Range/Units 18:19 18:45 WBC (3.98-10.04) K/mm3 RBC (3.98-5.22) M/mm3 Hgb (11.2-15.7) gm/dl Hct (34.1-44.9) % MCV (79.4-94.8) fl MCH (25.6-32.2) pg MCHC (32.2-35.5) g/dl RDW Std Deviation (36.4-46.3) fL Plt Count (182-369) K/mm3 MPV (9.4-12.3) fl Neut % (Auto) (34.0-71.1) % Lymph % (Auto) (19.3-51.7) % [place] % (Auto) (4.7-12.5) % Eos % (Auto) (0.7-5.8) Baso % (Auto) (0.1-1.2) % Neut # (Auto) (1.56-6.13) K/mm3 Lymph # (Auto) (1.18-3.74) K/mm3 [place] # (Auto) (0.24-0.36) K/mm3 Eos # (Auto) (0.04-0.36) K/mm3 Baso # (Auto) (0.01-0.08) K/mm3 Sodium (136-145) mEq/L Potassium (3.5-5.1) mEq/L Chloride (98-107) mEq/L Carbon Dioxide (21-32) mEq/L Anion Gap (5-15) BUN (7-18) mg/dL Creatinine (0.55-1.02) mg/dL Est Cr Clr Drug Dosing mL/min Estimated GFR (MDRD) (>60) mL/min BUN/Creatinine Ratio (14-18) Glucose (74-106) mg/dL Calcium (8.5-10.1) mg/dL Magnesium 2.3 (1.8-2.4) mg/dl Total Bilirubin (0.2-1.0) mg/dL AST (15-37) U/L ALT (14-59) U/L Alkaline Phosphatase (46-116) U/L C-Reactive Protein (<1.0) mg/dL Total Protein (6.4-8.2) g/dl Albumin (3.4-5.0) g/dl Globulin gm/dL Albumin/Globulin Ratio (1-2) Lipase (73-393) U/L Urine Color Yellow (Yellow) Urine Appearance Clear (Clear) Urine pH 6.0 (5.0-8.0) Ur Specific [place] > or = 1.030 (1.005-1.030) Urine Protein Negative (Negative) Urine Glucose (UA) Negative (Negative) Urine Ketones Negative (Negative) Urine Occult Blood Negative (Negative) Urine Nitrite Negative (Negative) Urine Bilirubin Negative (Negative) Urine Urobilinogen 1.0 (0.2-1.0) Ur Leukocyte Esterase Negative (Negative) Urine RBC Not seen (0-5) /hpf Urine WBC 0-5 (0-5) /hpf Ur Squamous Epith Cells 20-30 H (0-5) /hpf Urine Bacteria Few (FEW) /hpf Urine Mucus Not seen (FEW) /hpf SARS-CoV-2 RNA (NICK) (NEGATIVE) Meds: Medications Generic Name Dose Route Start Last Admin Trade Name Freq PRN Reason Stop Dose Admin Potassium Chloride/Sodium Chloride 1,000 mls @ 500 mls/hr 02/28/20 19:30 02/28/20 19:31 Normal Saline With 20 Meq Kcl IV 500 mls/hr ASDIRECTED CHELE Administration Sodium Chloride 10 ml 02/28/20 18:03 02/28/20 18:24 Saline Flush FLUSH 10 ml ASDIRECTED PRN Administration Keep Vein Open Discontinued Medications Generic Name Dose Route Start Last Admin Trade Name Marcy PRN Reason Stop Dose Admin Hydromorphone HCl 0.5 mg 02/28/20 19:20 02/28/20 19:31 Dilaudid IVPUSH 02/28/20 19:21 0.5 mg ONETIME ONE Administration Sodium Chloride 1,000 mls @ 999 mls/hr 02/28/20 18:03 02/28/20 18:23 Normal Saline IV 02/28/20 19:03 999 mls/hr NOW STA Administration Ketorolac Tromethamine 30 mg 02/28/20 18:06 02/28/20 18:27 Toradol IVPUSH 02/28/20 18:07 30 mg ONETIME ONE Administration Ondansetron HCl 4 mg 02/28/20 18:03 02/28/20 18:25 Zofran IVPUSH 02/28/20 18:04 4 mg ONETIME ONE Administration Ondansetron HCl 4 mg 02/28/20 20:05 02/28/20 20:15 Zofran IVPUSH 02/28/20 20:06 4 mg ONETIME ONE Administration - Re-Assessments/Exams Free Text/Narrative Re-Assessment/Exam: 02/28/20 19:25 Hematology was significant for platelet elevated 417, sodium elevated at 146, potassium low at 3.0, anion gap 17.0, CRP 2.6. Urinalysis was negative. Covid test was negative. Patient's nausea has improved but she does still feel mildly nauseous. Headache has improved but is still there. I do not think that she will be able to tolerate oral potassium at this point. I have ordered 1 L of NS with 20 of KCl to be given at 500 mils per hour as well as Dilaudid 0.5 mg IV. Magnesium results are pending. 02/28/20 20:46 Magnesium was normal. We will discharge the patient home once her IV fluids are complete. 02/28/20 22:03 Patient's IV fluids are complete. She is feeling much better and has been tolerating oral fluids. We will discharge her home with a prescription for potassium. She says she has Zofran with a number of refills still available at home. Recommend clear liquid diet and then advance as tolerated. Discharge instructions as documented. Departure - Departure Time of Disposition: 22:02 Disposition: Home, Self-Care 01 Condition: Good Clinical Impression: Viral gastroenteritis - Discharge Information *PRESCRIPTION DRUG MONITORING PROGRAM REVIEWED*: No *COPY OF PRESCRIPTION DRUG MONITORING REPORT IN PATIENT CHARITY: No Prescriptions: Potassium Chloride 10 meq PO BID 3 Days #6 capsule.er Instructions: Viral Gastroenteritis, Adult, [id number] Referrals: Lore Leonard MILITARY SOURCE OPERATIONS SPECIALIST [Primary Care Provider] - Forms: ED Department Discharge, ED Return to Work/School Form Additional Instructions: You were seen in the emergency department today for nausea, vomiting, diarrhea, headache, body aches, and fever. Work-up included blood work, urinalysis, and a Covid test. Results your blood work showed that you were dehydrated and your potassium was slightly low. Your Covid test was negative. While in the ER, you received 2 L of IV fluids, Zofran for nausea, and potassium replacement. Recommend that you maintain a clear liquid diet until symptoms have improved and then advance as tolerated. You may continue to use Zofran at home as needed for nausea and vomiting. A prescription for potassium has been sent to [facility]. Once you are feeling like you can tolerate it, take this medication as prescribed. If your symptoms do not continue to improve over the next few days, recommend return to the emergency department or follow-up with your primary care provider. Sepsis Event Note (ED) - Evaluation Sepsis Screening Result: No Definite Risk - Focused Exam Vital Signs: Vital Signs Temp Pulse Resp BP Pulse Ox 02/28/20 17:42 97.5 F 84 17 160/107 H 99 - My Orders Last 24 Hours: My Active Orders 02/28/20 18:02 Peripheral IV Insertion Adult [OM.PC] Stat 02/28/20 18:03 Peripheral IV Care [RC] . DIRECTED Sodium Chloride 0.9% [Saline Flush] 10 ml FLUSH ASDIRECTED PRN 02/28/20 19:30 NS + KCl 20mEq/L [Normal Saline with 20 mEq KCl] 1,000 ml IV ASDIRECTED - Assessment/Plan Last 24 Hours: My Active Orders 02/28/20 18:02 Peripheral IV Insertion Adult [OM.PC] Stat 02/28/20 18:03 Peripheral IV Care [RC] . DIRECTED Sodium Chloride 0.9% [Saline Flush] 10 ml FLUSH ASDIRECTED PRN 02/28/20 19:30 NS + KCl 20mEq/L [Normal Saline with 20 mEq KCl] 1,000 ml IV ASDIRECTED
[2020-02-28] MEDS ORDERED: HYDROmorphone 0.5 MG/0.5 ML Syringe IVPUSH ONE (19:20)
[2020-02-28] MEDS ORDERED: NS + KCl 20mEq/L 1,000 ML IV SCH (19:30)
[2020-02-28 22:30] VITALS: BP 154/108; PULSE 76
== END 2020-02-28 22:25 | disposition home or self-care (01) ==
LOC: JD.ED 17:28
DX: A08.4 Viral intestinal infection, unspecified (principal); I10 Essential (primary) hypertension; Z20.822 Contact with and (suspected) exposure to COVID-19; Z88.1 Allergy status to other antibiotic agents; Z88.0 Allergy status to penicillin; Z91.041 Radiographic dye allergy status; Z79.899 Other long term (current) drug therapy
CPT/HCPCS: 36415; 80053; 81001; 83690; 83735; 85025; 86140; 87635; 96365; 96366; 96375; 96376; 99284; J1170; J1885; J2405; J3480; J7030; U0002

== ENCOUNTER 2020-08-04 22:56 | Emergency (ER) | payer BC, OTHER ==
[2020-08-04 23:11] VITALS: BP 174/119; PULSE 102
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
[2020-08-05] MEDS ORDERED: Acetaminophen/HYDROcodone 325-5 MG Tab PO ONE (00:23)
--- NOTE | 2020-08-05 08:10 | CR ---
Right wrist: 3 views of the right wrist were obtained. Comparison: No prior wrist study is available. Joint spaces are preserved. No acute fracture, dislocation or other bony abnormality is appreciated. Impression: 1. Nothing acute is seen on right wrist exam. Diagnostic code #1
--- NOTE | 2020-08-05 08:10 | CR ---
Right shoulder: 3 views of the right shoulder were obtained. Comparison: No prior shoulder study is available. Study is compared to prior chest x-ray 05/02/16. Several nodules are seen within the right lung base which appear to be calcified and are compatible with stable granulomas. Glenohumeral joint joint appears within normal limits. Acromioclavicular joint shows very minimal elevation of the distal clavicle. Difficult to exclude minimal acromioclavicular separation. No acute fracture, dislocation or other bony abnormality is appreciated Impression: 1. Questionable findings for minimal acromioclavicular separation. Please correlate with the patient's symptoms. 2. Calcified granulomas within the right lung base. 3. No other acute finding is seen. Diagnostic code #2
--- NOTE | 2020-08-05 08:11 | CT ---
CT maxillofacial structures Technique: Multiple axial sections were obtained from above the frontal sinuses inferiorly through the mandible. Reconstructed coronal and sagittal images were obtained. Intravenous contrast was not utilized. Findings: Minimal lucency is noted within the nasal bone which is suspicious for minimal nondisplaced fracture. Mild nasal septal deviation is seen which appears to be chronic. Visualized paranasal sinuses are clear. No additional facial bone fracture is appreciated. Impression: 1. Possible nondisplaced nasal bone fracture. 2. Minimal nasal septal deviation which is felt to be chronic. 3. No other acute abnormality is seen. Diagnostic code #3 I agree with preliminary report from [facility] finalized on 08/05/20, 2:53 AM CDT, code 1
== END 2020-08-05 02:15 | disposition home or self-care (01) ==
LOC: JD.ED 22:56
DX: S02.2XXA Fracture of nasal bones, initial encounter for closed fracture (principal); I10 Essential (primary) hypertension; Z88.0 Allergy status to penicillin; Z91.041 Radiographic dye allergy status; Z88.1 Allergy status to other antibiotic agents; Y04.0XXA Assault by unarmed brawl or fight, initial encounter
CPT/HCPCS: 70486; 73030; 73110; 99284; A9270

== ENCOUNTER 2020-08-11 22:27 | Emergency (ER) | payer OTHER ==
--- NOTE | 2020-08-11 22:44 | EDM.PDOC ---
ED HPI GENERAL MEDICAL PROBLEM - General Chief Complaint: General Stated Complaint: rectal bleeding / clots Time Seen by Provider: 08/11/20 22:41 Source of Information: Reports: Patient History Limitations: Reports: No Limitations - History of Present Illness INITIAL COMMENTS - FREE TEXT/NARRATIVE: 34-year-old female presents to the ED due to perirectal pain and bright red bleeding with clots per rectum on several occasions today. Patient has a history of internal hemorrhoids and has had them banded. She can palpate a lump that is somewhat painful at the 7 o'clock position of her anus. She appreciates bleeding is coming from this area with clots. Her bowel movements for the most part have been diarrhea 3-4 times a day best to care over the last 4 days. She states she is going through a divorce and moving etc. which is created a great deal of mental anxiety and stress. Onset: Today, Sudden Onset Date: 08/11/20 (First noticed some bleeding per rectum yesterday.) Onset Time: 15:00 Duration: Hour(s):, Waxing/Waning Location: Reports: Other Quality: Reports: Ache (Perianal pain with bright red rectal bleeding with clots), Throbbing Severity: Moderate Improves with: Reports: None Worsens with: Reports: Other Context: Denies: Activity, Exercise (Of movement), Lifting, Sick Contact, Trauma, Other Associated Symptoms: Denies: No Other Symptoms, Confusion, Chest Pain, Cough, cough w sputum, Diaphoresis, Fever/Chills, Headaches, Loss of Appetite, Malaise, Nausea/Vomiting, Rash, Seizure, Shortness of Breath, Syncope, Weakness Treatments ANESTHESIOLOGY FACULTY: Reports: Other (see below) (Hemorrhoidal cream with no relief.) Rectal Pain Score (Numeric/FACES): 10 - Related Data Allergies Allergy/AdvReac Type Severity Reaction Status Date / Time cefazolin sodium [From [facility]] Allergy Severe Cannot Verified 08/05/20 00:42 Remember Penicillins Allergy Severe Anaphylactic Verified 08/05/20 00:[address] Contrast Allergy Severe Rash Uncoded 08/05/20 00:42 Home Meds: Home Meds Amitriptyline [Elavil] 20 mg PO DAILY 09/27/19 [History] DULoxetine HCl [Cymbalta] 60 mg PO DAILY 09/27/19 [History] Losartan/Hydrochlorothiazide [Losartan-HCTZ 50-12.5 MG] 1 tab PO DAILY 02/28/20 [History] SUMAtriptan [Imitrex] 1 injection IM DAILY PRN 02/28/20 [History] diazePAM [Valium] 10 mg PO BEDTIME PRN 02/28/20 [History] valACYclovir HCl [valACYclovir] 1,000 mg PO Q12H PRN 02/28/20 [History] Hydrocortisone Acetate [Anusol-Hc] 25 mg RC DAILY #7 supp.rect 08/11/20 [Rx] Past Medical History Cardiovascular History: Reports: Hypertension Genitourinary History: Reports: Renal Calculus 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 Other Musculoskeletal History: right wrist fx; right wrist surgery 12-17-2015 Neurological History: Reports: Migraines, Other (See Below) Other Neuro History: occipital neuralgia Psychiatric History: Reports: None Other Oncologic History: melanoma Dermatologic History: Reports: Other (See Below) Other Dermatologic History: acne - Infectious Disease History Infectious Disease History: Reports: Chicken Pox - Past Surgical History HEENT Surgical History: Reports: Adenoidectomy, Oral Surgery, Tonsillectomy Other HEENT Surgeries/Procedures: adenoids GI Surgical History: Reports: Cholecystectomy, Colonoscopy Female Surgical History: Reports: Hysterectomy Musculoskeletal Surgical History: Reports: Other (See Below) Social & Family History - Family History Family Medical History: No Pertinent Family History - Caffeine Use Caffeine Use: Reports: Coffee, Energy Drinks, Soda - Living Situation & Occupation Living situation: Reports: , with Spouse, with Family Occupation: Employed ED ROS GENERAL - Review of Systems Review Of Systems: See Below Constitutional: Reports: No Symptoms HEENT: Reports: No Symptoms Respiratory: Reports: No Symptoms Cardiovascular: Reports: No Symptoms Endocrine: Reports: No Symptoms GI/Abdominal: Reports: Diarrhea (Diarrhea related to stress of divorce over the last for 5 days. On average 3 or 4 times daily.), Other (Bright red bleeding per rectum from a thrombosed external hemorrhoid that she can feel.) : Reports: No Symptoms Musculoskeletal: Reports: No Symptoms Skin: Reports: No Symptoms Neurological: Reports: No Symptoms Psychiatric: Reports: No Symptoms Hematologic/Lymphatic: Reports: No Symptoms Immunologic: Reports: No Symptoms ED EXAM, GENERAL - Physical Exam Exam: See Below Exam Limited By: No Limitations General Appearance: Alert, WD/WN, No Apparent Distress, Other (Temperature is 36.3 degrees. Heart rate is 82 in sinus. Respiratory is 20 with O2 sats of 99% room air. BP is elevated 157 114.) Eye Exam: Bilateral Eye: Normal Inspection (No scleral icterus or blepharal pallor.) Throat/Mouth: Normal Inspection, Normal Lips, Normal Teeth, Normal Oropharynx Head: Atraumatic, Normocephalic Neck: Normal Inspection, Supple, Non-Tender, Full Range of Motion. No: Lymphadenopathy (L), Lymphadenopathy (R) Respiratory/Chest: No Respiratory Distress, Lungs Clear, Normal Breath Sounds, No Accessory Muscle Use Cardiovascular: Normal Peripheral Pulses, Regular Rate, Rhythm, No Edema, No Gallop, No Murmur Rectal (Female) Exam: Hemorrhoids (Almost external hemorrhoid.), Tenderness, Other (Patient has a thrombosed external hemorrhoid at the 7 o'clock position which is open towards the anal verge. It has a clot within it which I was able to remove under local anesthetic. On rectal exam there is a thrombosed internal hemorrhoid at the 7 o'clock position as well. ). No: Rectal Fissure Back Exam: Normal Inspection, Full Range of Motion. No: CVA Tenderness (L), CVA Tenderness (R) Extremities: Normal Inspection, Normal Range of Motion, Non-Tender, No Pedal Edema Course - Vital Signs Last Recorded V/S: Last Vital Signs Temp 36.3 C 08/11/20 22:54 Pulse 72 08/12/20 00:00 Resp 20 08/12/20 00:00 BP 143/88 H 08/12/20 00:00 Pulse Ox 96 08/12/20 00:00 Orthostatic Blood Pressure [ 152/123 Standing] Orthostatic Blood Pressure [ 157/114 Sitting] Orthostatic Blood Pressure [ 158/106 Supine] - Orders/Labs/Meds Orders: Active Orders 24 hr Category Date Time Status min Carson [Anisa] Med 08/11/20 23:47 Active 1 pad TOP ASDIRECTED PRN Medication Orders Min Carson (Min Carson Medicated Pads 40/Jar) 1 pad TOP ASDIRECTED PRN PRN Reason: Ruptured thrombosed hemorrhoid Last Admin: 08/11/20 23:57 Dose: 1 pad Documented by: [id number] Meds: Medications Generic Name Dose Route Start Last Admin Trade Name Freselvin PRN Reason Stop Dose Admin Min Carson 1 pad 08/11/20 23:47 08/11/20 23:57 Witwily Carson Medicated Pads 40/Jar TOP 1 pad ASDIRECTED PRN Administration Ruptured thrombosed hemorrhoid Discontinued Medications Generic Name Dose Route Start Last Admin Trade Name Freselvin PRN Reason Stop Dose Admin Hydrocortisone Acetate 25 mg 08/11/20 23:47 08/11/20 23:57 Hydrocortisone Acetate 25 Mg Supp RECTAL 08/11/20 23:48 25 mg ONETIME ONE Administration Lidocaine HCl 10 ml 08/11/20 23:15 08/11/20 23:22 Lidocaine 2% Jelly 10 Ml Urojet MUCMEM 08/11/20 23:16 10 ml ONETIME ONE Administration - Radiology Interpretation Free Text/Narrative:: 34-year-old female presents to the ED with a history of bright red bleeding per rectum with clots. This started yesterday but what is worse today. Her underwear is soaked with blood. On examination she has a thrombosed external hemorrhoid at the 7 o'clock position that has opened up and extruding clot towards the anal verge. I was able to remove the clot from within this hemorrhoid under local anesthetic. On digital examination there is a thrombosed internal hemorrhoid at the 7 o'clock position as well. No blood in the gloved finger. Plan Anusol HC suppository every night at bedtime for the next 8 days. First 1 was provided through the ED [facility]Cswitch. Sitz bath 3 times daily as hard as she can stand it. Tucks pads to the area after bathing and 4 x 4 gauze to hold it in place with mesh shorts. She will follow up with general surgery if problems continue. Advised that hemorrhoids will take between 7 and 10 days to shrink and leave her with a small external skin tag. Departure - Departure Time of Disposition: 23:49 Disposition: Home, Self-Care 01 Condition: Fair Clinical Impression: Internal and external thrombosed hemorrhoids, Rectal bleeding - Discharge Information *PRESCRIPTION DRUG MONITORING PROGRAM REVIEWED*: Not Applicable *COPY OF PRESCRIPTION DRUG MONITORING REPORT IN PATIENT CHARITY: Not Applicable Prescriptions: Hydrocortisone Acetate [Anusol-Hc] 25 mg RC DAILY #7 supp.rect Instructions: Hemorrhoids, [id number] Referrals: Lore Leonard SALES FLOOR TEAM LEADER [Primary Care Provider] - Forms: ED Department Discharge Additional Instructions: Evaluation in the emergency room tonight in regards to profuse rectal bleeding per rectum secondary to thrombosed internal and external hemorrhoid at the 7 o'clock position. The external hemorrhoid has ruptured and has produced clots and free blood. I removed what clot I could and I believe the external hemorrhoid is now empty. Bleeding hopefully will be minimal after tonight. Use Anusol HC suppository every night at bedtime for the next 7 days. For suppository was given in the ED tonight. After showering daily use a Tucks pad over top of the hemorrhoid and cover with 4 x 4 gauze to hold it in place. Tucks pad can be placed on the hemorrhoid 3 times daily until better. Most hemorrhoids will take between 7 and 10 days to completely reabsorb. Follow-up with personal care physician or general surgeon who bands internal hemorrhoids if you continue to have problems. Sepsis Event Note (ED) - Focused Exam Vital Signs: Vital Signs Temp Pulse Resp BP Pulse Ox 08/12/20 00:00 72 20 143/88 H 96 08/11/20 22:54 36.3 C 82 20 157/114 H 99 - My Orders Last 24 Hours: My Active Orders 08/11/20 23:47 min Carson [Garys] 1 pad TOP ASDIRECTED PRN - Assessment/Plan Last 24 Hours: My Active Orders 08/11/20 23:47 min Carson [Garys] 1 pad TOP ASDIRECTED PRN
[2020-08-11] MEDS ORDERED: Lidocaine 2% Jelly 10 ML Urojet MUCMEM ONE (23:15)
[2020-08-11] MEDS ORDERED: Hydrocortisone Acetate 25 MG Supp RECTAL ONE (23:47)
[2020-08-11] MEDS ORDERED: Witch Hazel Medicated Pads 40/Jar TOP PRN (23:47)
[2020-08-12 00:10] VITALS: BP 143/88; PULSE 72
== END 2020-08-12 00:10 | disposition home or self-care (01) ==
LOC: JD.ED 22:27
DX: K64.5 Perianal venous thrombosis (principal); K64.8 Other hemorrhoids; K62.5 Hemorrhage of anus and rectum; I10 Essential (primary) hypertension; Z88.1 Allergy status to other antibiotic agents; Z88.0 Allergy status to penicillin; Z91.041 Radiographic dye allergy status; Z79.899 Other long term (current) drug therapy
CPT/HCPCS: 99282; A9270; 99283

== ENCOUNTER 2020-10-15 20:51 | Emergency (ER) | payer OTHER ==
[2020-10-15 21:13] VITALS: BP 155/123; PULSE 90
--- NOTE | 2020-10-15 21:43 | EDM.PDOC ---
ED HPI GENERAL MEDICAL PROBLEM - General Chief Complaint: Headache Stated Complaint: MIGRAINE Time Seen by Provider: 10/15/20 21:20 Source of Information: Reports: Patient History Limitations: Reports: No Limitations - History of Present Illness INITIAL COMMENTS - FREE TEXT/NARRATIVE: 34-year-old female presents the emergency department with complaints of migraine headache. Patient states that she does have a history of migraine headaches and does have Imitrex. She states that she developed a migraine headache first thing this morning at 8 AM. She has had photophobia as well as nausea associated with the headache and diaphoresis. She states she did take her Imitrex injection which did not seem to help. She has been taking her Zofran 4 mg ODT tabs every 6 hours to prevent her from vomiting as she has been severely nauseated throughout the day. She has also been diaphoretic and states she has taken several showers in hopes that that would help relieve her headache however it has not. She states that the headache is a generalized headache from the forehead to the base of her skull. She denies any fever, chills, abdominal pain or diarrhea. She denies any cough or shortness of breath or any other respiratory symptoms. She does not smoke cigarettes. She drinks socially and does not do any kind of recreational drugs. She states her primary care provider is Lore Leonard NP. Headache Pain Score (Numeric/FACES): 10 - Related Data Allergies Allergy/AdvReac Type Severity Reaction Status Date / Time cefazolin sodium [From [facility]] Allergy Severe Cannot Verified 10/15/20 22:25 Remember Penicillins Allergy Severe Anaphylactic Verified 10/15/20 22:[address] Contrast Allergy Severe Rash Uncoded 10/15/20 22:25 Home Meds: Home Meds Amitriptyline [Elavil] 20 mg PO DAILY 09/27/19 [History] DULoxetine HCl [Cymbalta] 60 mg PO DAILY 09/27/19 [History] SUMAtriptan [Imitrex] 1 injection IM DAILY PRN 02/28/20 [History] diazePAM [Valium] 10 mg PO BEDTIME PRN 02/28/20 [History] valACYclovir HCl [valACYclovir] 1,000 mg PO Q12H PRN 02/28/20 [History] Past Medical History Cardiovascular History: Reports: Hypertension Genitourinary History: Reports: Renal Calculus 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 APPRENTICE History: x1 Other Musculoskeletal History: right wrist fx; right wrist surgery 12-17-2015 Neurological History: Reports: Migraines, Other (See Below) Other Neuro History: occipital neuralgia Psychiatric History: Reports: None Other Oncologic History: melanoma Dermatologic History: Reports: Other (See Below) Other Dermatologic History: acne - Infectious Disease History Infectious Disease History: Reports: Chicken Pox - Past Surgical History HEENT Surgical History: Reports: Adenoidectomy, Oral Surgery, Tonsillectomy Other HEENT Surgeries/Procedures: adenoids GI Surgical History: Reports: Cholecystectomy, Colonoscopy Female Surgical History: Reports: Hysterectomy Musculoskeletal Surgical History: Reports: Other (See Below) Social & Family History - Family History Family Medical History: No Pertinent Family History - Tobacco Use Tobacco Use Status *Q: Never Tobacco User Second Hand Smoke Exposure: No - Caffeine Use Caffeine Use: Reports: Coffee, Soda - Recreational Drug Use Recreational Drug Use: No - Living Situation & Occupation Living situation: Reports: , with Spouse, with Family Occupation: Employed ED ROS GENERAL - Review of Systems Review Of Systems: Comprehensive ROS is negative, except as noted in HPI. - Physical Exam Exam: See Below Exam Limited By: No Limitations General Appearance: Alert, WD/WN, No Apparent Distress Eye Exam: Bilateral Eye: PERRL Ears: Normal External Exam, Hearing Grossly Normal Nose: Normal Inspection Throat/Mouth: Normal Inspection, Normal Lips, Normal Voice, No Airway Compromise Head Exam: Atraumatic, Normocephalic Neck: Normal Inspection, Supple Respiratory/Chest: No Respiratory Distress, Lungs Clear, Normal Breath Sounds, No Accessory Muscle Use, Chest Non-Tender Cardiovascular: Normal Peripheral Pulses, Regular Rate, Rhythm, No Murmur GI/Abdominal: Normal Bowel Sounds, No Distention (Female) Exam: Deferred Rectal (Female) Exam: Deferred Neuro Exam (Abbreviated): Alert, Oriented, Normal Cognition Back Exam: Normal Inspection Extremities: Normal Inspection Psychiatric: Normal Affect, Normal Mood Skin Exam: Warm, Dry, Intact, Normal Color, No Rash Course - Vital Signs Text/Narrative:: As stated above, patient presents with migraine headache pain and has a history of migraine headaches. I have ordered for the patient receive a liter of normal saline wide open. We will also give her Toradol, Reglan and Benadryl to hopefully abort the migraine headache. Last Recorded V/S: Last Vital Signs Temp 97.2 F 10/15/20 21:11 Pulse 90 10/15/20 21:11 Resp 16 10/15/20 21:11 BP 155/123 H 10/15/20 21:11 Pulse Ox 95 10/15/20 21:11 - Orders/Labs/Meds Meds: Medications Discontinued Medications Generic Name Dose Route Start Last Admin Trade Name Marcy PRN Reason Stop Dose Admin Diphenhydramine HCl 25 mg 10/15/20 21:38 10/15/20 22:06 Diphenhydramine 50 Mg/Ml Sdv IVPUSH 10/15/20 21:39 25 mg ONETIME ONE Administration Sodium Chloride 1,000 mls @ 999 mls/hr 10/15/20 21:38 10/15/20 22:04 Normal Saline IV 10/15/20 22:38 999 mls/hr ONETIME ONE Administration Ketorolac Tromethamine 30 mg 10/15/20 21:38 10/15/20 22:04 Ketorolac 30 Mg/Ml Sdv IVPUSH 10/15/20 21:39 30 mg ONETIME ONE Administration Metoclopramide HCl 10 mg 10/15/20 21:38 10/15/20 22:05 Metoclopramide 10 Mg/2 Ml Sdv IVPUSH 10/15/20 21:39 10 mg ONETIME ONE Administration - Re-Assessments/Exams Free Text/Narrative Re-Assessment/Exam: 10/15/20 22:47 Patient reports that her headache pain is gone. We will are be discharged home as soon as her IV fluid has infused. Departure - Departure Time of Disposition: 22:47 Disposition: Home, Self-Care 01 Condition: Good Clinical Impression: Migraine - Discharge Information Referrals: Lore Leonard NP [Primary Care Provider] - Forms: ED Department Discharge Additional Instructions: You were seen in the emergency department complaints of migraine headache. Treatment included IV fluids, Reglan, Toradol and Benadryl. This successfully aborted your migraine headache. Go home and rest, drink plenty of fluids. Should you have any problems or your headache returns or worsens do not hesitate returning to the emergency department. Sepsis Event Note (ED) - Evaluation Sepsis Screening Result: No Definite Risk - Focused Exam Vital Signs: Vital Signs Temp Pulse Resp BP Pulse Ox 08/31/21 21:11 97.2 F 90 16 155/123 H 95
[2020-10-15] MEDS: Ketorolac 30 MG/ML SDV IVPUSH ONE (22:04)
[2020-10-15] MEDS: Sodium Chloride 0.9% 1,000 ML IV ONE (22:04)
[2020-10-15] MEDS: Metoclopramide 10 MG/2 ML SDV IVPUSH ONE (22:05)
[2020-10-15] MEDS: diphenhydrAMINE 50 MG/ML SDV IVPUSH ONE (22:06)
== END 2020-10-15 23:10 | disposition home or self-care (01) ==
LOC: JD.ED 20:51
DX: G43.909 Migraine, unspecified, not intractable, without status migrainosus (principal); Z88.0 Allergy status to penicillin; Z91.041 Radiographic dye allergy status; Z88.1 Allergy status to other antibiotic agents
CPT/HCPCS: 96374; 96375; 99283; J1200; J1885; J2765; J7030

== ENCOUNTER 2021-03-27 14:19 | Emergency (ER) | payer BC, OTHER ==
[2021-03-27 14:39] VITALS: BP 156/107; PULSE 96
[2021-03-27] MEDS ORDERED: HYDROmorphone 1 MG/ML Syringe IVPUSH STA (14:46)
[2021-03-27] MEDS ORDERED: Sodium Chloride 0.9% 10 ML Syringe FLUSH PRN (14:46)
[2021-03-27] MEDS ORDERED: diphenhydrAMINE 50 MG/ML SDV IVPUSH ONE (14:47)
[2021-03-27] MEDS ORDERED: Sodium Chloride 0.9% 1,000 ML IV SCH (15:00)
[2021-03-27] MEDS ORDERED: Iopamidol 612 MG/ML 100 ML Bottle IVPUSH ONE (15:01)
[2021-03-27] MEDS ORDERED: Sodium Chloride 0.9% 100 ML IV SCH (15:15)
[2021-03-27] MEDS ORDERED: Dicyclomine 10 MG Cap PO ONE (15:57)
[2021-03-27] MEDS ORDERED: fentaNYL 100 MCG/2 ML SDV IVPUSH ONE (15:58)
[2021-03-27] MEDS ORDERED: Promethazine 25 MG in Sodium Chloride 0.9% 50 ML IV ONE (15:59)
[2021-03-27] MEDS ORDERED: Potassium Chloride 20 MEQ Tab.ER PO ONE (16:46)
== END 2021-03-27 17:36 | disposition home or self-care (01) ==
LOC: JD.ED 14:19
DX: K52.9 Noninfective gastroenteritis and colitis, unspecified (principal); I10 Essential (primary) hypertension; Z88.0 Allergy status to penicillin; Z91.041 Radiographic dye allergy status; Z88.1 Allergy status to other antibiotic agents; Z86.16 Personal history of COVID-19
CPT/HCPCS: 36415; 74177; 80053; 81001; 83690; 85025; 86140; 96365; 96375; 99284; A9270; J1170; J1200; J2550; J3010; J7030; Q9967

== ENCOUNTER 2021-12-06 18:39 | Emergency (ER) | payer BC, MEDICAID ==
[2021-12-06 19:31] VITALS: BP 162/120; PULSE 82
[2021-12-06] MEDS ORDERED: Sodium Chloride 0.9% 1,000 ML IV ONE (19:54)
[2021-12-06] MEDS ORDERED: Ketorolac 30 MG/ML SDV IVPUSH ONE (19:54)
[2021-12-06] MEDS ORDERED: Metoclopramide 10 MG/2 ML SDV IVPUSH ONE (19:54)
[2021-12-06] MEDS ORDERED: diphenhydrAMINE 50 MG/ML SDV IVPUSH ONE (19:54)
== END 2021-12-06 21:25 | disposition home or self-care (01) ==
LOC: JD.ED 18:39
DX: G43.909 Migraine, unspecified, not intractable, without status migrainosus (principal); I10 Essential (primary) hypertension; Z88.0 Allergy status to penicillin; Z88.1 Allergy status to other antibiotic agents; Z91.041 Radiographic dye allergy status; Z86.16 Personal history of COVID-19; Z90.49 Acquired absence of other specified parts of digestive tract
CPT/HCPCS: 96361; 96374; 96375; 99283; J1200; J1885; J2765; J7030